=== PATIENT | female | born 1985 | race Two or more races ===

== ENCOUNTER 2017-04-04 22:05 | Emergency (ER) | payer MEDICAID ==
[~2017-04-04] VITALS: Ht 157.5 cm; Wt 68.0 kg
[2017-04-04 22:08] VITALS: Ht 157.5 cm; Wt 68.0 kg
[2017-04-05] MEDS ORDERED: SOD CHLORIDE 0.9% 1,000 ML IV STA (00:06)
[2017-04-05] MEDS ORDERED: IBUPROFEN 600 MG TAB PO ONE (00:30)
[2017-04-05] MEDS ORDERED: ACETAMINOPHEN 325 MG TAB PO ONE (00:30)
[2017-04-05 00:36] LABS: ADD SCAN DIFF NO
[2017-04-05 00:38] LABS: BASOPHILS % 0.3 % (0.0-2.0); HEMATOCRIT 39.1 % (37.0-47.0); HEMOGLOBIN 13.6 g/dl (12.0-16.0); LYMPHOCYTES # 1.5 10^3/ul (0.8-2.9); LYMPHOCYTES % 11.9 % (15.0-51.0); MEAN CORPUSCULAR HEMOGLOBIN 31.6 pg (29.0-33.0); MEAN CORPUSCULAR HGB CONC 34.8 g/dl (32.0-37.0); MEAN CORPUSCULAR VOLUME 90.9 fl (82.0-101.0); MEAN PLATELET VOLUME 9.3 fl (7.4-10.4); MONOCYTE # 1.4 10^3/ul (0.3-0.9); MONOCYTES % 11.2 % (0.0-11.0); NEUTROPHIL # 9.3 10^3/ul (1.6-7.5); NEUTROPHILS % 76.3 % (39.0-77.0); PLATELET COUNT 255 10^3/UL (140-415); RED CELL DISTRIBUTION WIDTH 12.9 % (11.5-14.5); WHITE BLOOD COUNT 12.2 10^3/ul (4.8-10.8)
[2017-04-05 00:50] LABS: ADD UMIC YES; UR ASCORBIC ACID NEGATIVE (NEGATIVE); UR BILIRUBIN (Dip) NEGATIVE (NEGATIVE); UR BLOOD (Dip) NEGATIVE (NEGATIVE); UR CLARITY CLEAR (CLEAR); UR COLOR YELLOW (YELLOW); UR GLUCOSE (Dip) NEGATIVE (NEGATIVE); UR KETONES (Dip) TRACE mg/dL (NEGATIVE); UR LEUKOCYTE ESTERASE (Dip) 1+ Leu/ul (NEGATIVE); UR NITRITE (Dip) NEGATIVE (NEGATIVE); UR RBC 2 /HPF (0-5); UR SPECIFIC GRAVITY (Dip) 1.006 (1.003-1.030); UR TOTAL PROTEIN (Dip) NEGATIVE (NEGATIVE); UR UROBILINOGEN (Dip) NEGATIVE (NEGATIVE)
[2017-04-05 01:18] LABS: ALBUMIN 4.1 g/dl (3.3-4.9); ALBUMIN/GLOBULIN RATIO 1.02; BILIRUBIN,INDIRECT 0.1 mg/dl (0-1.1); BILIRUBIN,TOTAL 0.1 mg/dl (0.2-1.3); CALCIUM 9.1 mg/dl (8.4-10.2); CREATININE 0.77 mg/dl (0.44-1.00); POTASSIUM 3.9 mmol/L (3.5-5.1); TOTAL PROTEIN 8.1 g/dl (6.1-8.1)
[2017-04-05] MEDS ORDERED: CEFTRIAXONE 1 GM/50 ML (PMX) 50 ML IVPB ONE (02:30)
[2017-04-05] MEDS ORDERED: IBUP-1542 PO (02:44)
[2017-04-05] MEDS ORDERED: CIPR500T4 PO (02:44)
[2017-04-05 02:53] VITALS: BP 109/62; PULSE 90; RESP 16; TEMP 98.2
--- NOTE | 2017-04-05 03:10 | ERD ---
ER Documentation Chief Complaint Date/Time DATE: 04/05/17 TIME: 02:50 Chief Complaint painful urination x 1 week, headache, fever HPI 32-year-old female patient with a past medical history of urinary tract infections presents to the ED complaining of fever, dysuria, burning with urination that started 1 week ago. Reports that she also has a headache. States that she is taking Tylenol at 2 PM today. Reports that her last menses was on March 26, 2017. States that she has 1 sexual partner. Denies any chest pain, shortness of breath, abdominal pain, nausea, vomiting, hematuria, urgency , frequency. ROS All systems reviewed and are negative except as per history of present illness. Medications Home Meds Active Scripts Ibuprofen* (Motrin*) 600 Mg Tab, 600 MG PO Q6, #30 TAB Prov:JEAN DOWNING PA-C 04/05/17 Ciprofloxacin Hcl* (Ciprofloxacin Hcl*) 500 Mg Tablet, 500 MG PO BID for 10 Days , TAB Prov:JEAN DOWNING PA-C 04/05/17 Allergies Allergies: Coded Allergies: No Known Allergy (Unverified , 04/04/17) PMhx/Soc Medical and Surgical Hx: pt denies Medical Hx, pt denies Surgical Hx History of Surgery: No Anesthesia Reaction: No Hx Neurological Disorder: No Hx Respiratory Disorders: No Hx Cardiac Disorders: No Hx Psychiatric Problems: No Hx Miscellaneous Medical Probl: No Hx Alcohol Use: No Hx Substance Use: No Hx Tobacco Use: No Smoking Status: Never smoker Physical Exam Vitals Vital Signs Date Time Temp Pulse Resp B/P Pulse Ox O2 Delivery O2 Flow Rate FiO2 04/05/17 02:53 98.2 90 16 109/62 98 Room Air 04/05/17 01:50 100.4 96 18 101/63 100 Room Air 04/04/17 22:08 103.6 122 20 121/88 100 Physical Exam Const: Lbe-[id number], well-nourished. In no acute distress. Head: Atraumatic, normocephalic Eyes: Normal Conjunctiva without injection. No purulent discharge. ENT: Normal external ear, nose. Moist oropharynx without tonsillar exudates. Non -erythematous pharynx. Uvula midline. No drooling. No trismus. Neck: No cervical midline tenderness. Full range of motion. No meningismus. No cervical lymphadenopathy. No JVD. Resp: Clear to auscultation bilaterally. No wheezing, rhonchi, rales, or crackles. No accessory muscle use. No retractions. Cardio: Regular rate and rhythm. No murmurs, rubs or gallops. Abd: Soft, nontender, non distended. Normal bowel sounds. No palpable masses. No rebound tenderness. No guarding. Negative McBurney's point. Negative psoas sign. Negative obturator sign. Skin: No petechiae or rashes Back: No midline tenderness. No CVA tenderness. Ext: No cyanosis, or edema. Neur: Awake and alert. Normal gait. Normal coordination. Psych: Normal Mood and Affect Result Diagram: 04/05/17 0025 04/05/17 0025 Results 24 hrs Laboratory Tests Test 04/05/17 00:25 White Blood Count 12.210^3/ul Red Blood Count 4.3010^6/ul Hemoglobin 13.6g/dl Hematocrit 39.1% Mean Corpuscular Volume 90.9fl Mean Corpuscular Hemoglobin 31.6pg Mean Corpuscular Hemoglobin Concent 34.8g/dl Red Cell Distribution Width 12.9% Platelet Count 96202^3/UL Mean Platelet Volume 9.3fl Neutrophils % 76.3% Lymphocytes % 11.9% Monocytes % 11.2% Eosinophils % 0.0% Basophils % 0.3% Nucleated Red Blood Cells % 0.0/100WBC Neutrophils # 9.310^3/ul Lymphocytes # 1.510^3/ul Monocytes # 1.410^3/ul Eosinophils # 0.010^3/ul Basophils # 0.010^3/ul Nucleated Red Blood Cells # 0.010^3/ul Urine Color YELLOW Urine Clarity CLEAR Urine pH 6.0 Urine Specific [place] 1.006 Urine Ketones TRACEmg/dL Urine Nitrite NEGATIVEmg/dL Urine Bilirubin NEGATIVEmg/dL Urine Urobilinogen NEGATIVEmg/dL Urine Leukocyte Esterase 1+Kelle/ul Urine Microscopic RBC 2/HPF Urine Microscopic WBC 11/HPF Urine Hemoglobin NEGATIVEmg/dL Urine Glucose NEGATIVEmg/dL Urine Total Protein NEGATIVEmg/dl Sodium Level 139mmol/L Potassium Level 3.9mmol/L Chloride Level 99mmol/L Carbon Dioxide Level 24mmol/L Anion Gap 20 Blood Urea Nitrogen 9mg/dl Creatinine 0.77mg/dl Glucose Level 127mg/dl Calcium Level 9.1mg/dl Total Bilirubin 0.1mg/dl Direct Bilirubin 0.00mg/dl Indirect Bilirubin 0.1mg/dl Aspartate Amino Transf (AST/SGOT) 27IU/L Alanine Aminotransferase (ALT/SGPT) 36IU/L Alkaline Phosphatase 68IU/L Total Protein 8.1g/dl Albumin 4.1g/dl Globulin 4.00g/dl Albumin/Globulin Ratio 1.02 Lipase 17U/L Current Medications Medications (Trade) Dose Ordered Sig/Sally Route PRN Reason Start Time Stop Time Status Last Admin Dose Admin Sodium Chloride (NS) 1,000 ml @ 1,000 mls/hr Q1H STAT IV 04/05/17 00:06 04/05/17 01:05 DC 04/05/17 00:23 Ibuprofen (Motrin) 600 mg ONCE ONCE PO 04/05/17 00:30 04/05/17 00:31 DC 04/05/17 00:22 Acetaminophen 650 mg 650 mg ONCE ONCE PO 04/05/17 00:30 04/05/17 00:31 DC 04/05/17 00:22 Ceftriaxone Sodium (Rocephin) 50 ml @ 100 mls/hr ONCE ONCE IVPB 04/05/17 02:30 04/05/17 02:55 DC 04/05/17 02:26 Procedures/MDM 32-year-old female patient with no significant past medical history presents the ED complaining of fever, dysuria that started 1 week ago. Patient has a fever of 103.6. Patient is tachycardic at 122. Patient was further worked up with CBC, CMP, lipase, UA, urine . Patient's pain and symptoms have improved after treatment with 1 L of normal saline and Tylenol. CBC: No leukocytosis. No e/o of systemic infection. No e/o anemia. CMP: No e/o severe acidosis, alkalosis, renal failure, diabetic ketoacidosis, liver disease Lipase within normal limits. Urine: No leukocyte esterase, no nitrites, no hematuria. Urine : negative Patient likely has pyelonephritis. He was treated in the ED with ceftriaxone and is appropriate for outpatient antibiotics. A differential diagnosis considered includes but is not limited to gastritis, GERD, peptic ulcer disease , cholecystitis, choledocholithiasis, cholangitis, pancreatitis, appendicitis, bowel obstruction, ileus, volvulus, nephrolithiasis, pyelonephritis, hepatitis, perforated viscus, diverticulitis, abdominal hernia, acute abdomen, mesenteric ischemia or other emergent conditions. Discharge medications: Ciprofloxacin, Ibuprofen Follow up with primary care physician in 1-2 days for referral to lace pinner. Instructed patient to return to the ED sooner for any worsening symptoms. Patient's questions were answered. Patient understood and agreed with discharge plan. Patient discharged stable. Departure Diagnosis: Primary Impression: Pyelonephritis Condition: Stable Patient Instructions: Pyelonephritis, Female (Adult) [facility] Usted se moran hecho un examen mdico de control que le indica que no est en hilaria condicin que requiera tratamiento urgente en el Departamento de Emergencia. Un estudio ms profundo y el tratamiento de gasca condicin pueden esperar sin ningn riesgo hasta que usted sea atendida/o en el consultorio de gasca mdico o hilaria cl abdi. Es responsabilidad suya arreglar hilaria katie para el seguimiento del jadyn. MANEJO DE CONDICIONES NO URGENTES EN EL FUTURO 1) Si usted tiene un mdico de atencin primaria: Usted debera llamar a gasca mdico de atencin primaria antes de venir al departamento de emergencia. Despus de las horas de consultorio, gasca doctor o gasca asociado/a est disponible por telfono. El mdico o enfermero de gabi en el servicio telefnico puede asesorarle por zach medio para atender el problema, o jadyn contrario se puede programar hilaria katie. 2) Si usted no tiene un mdico de atencin primaria: Llame al mdico o clnica de referencia que aparece abajo kelsey las horas de consultorio para hacer hilaria katie para que le vean. CLINICAS: [facility] [phone] [address] [facility] 951 [phone] [address] [facility] [phone] [facility] 681 [phone] [place] [address] [phone] [facility]. [phone] [address] [facility]. [facility] () Usted se moran hecho un examen mdico de control que le indica que no est en hilaria condicin que requiera tratamiento urgente en el Departamento de Emergencia. Un estudio ms profundo y el tratamiento de gasca condicin pueden esperar sin ningn riesgo hasta que usted sea atendida/o en el consultorio de gasca mdico o hilaria cl abdi. Es responsabilidad suya arreglar hilaria katie para el seguimiento del jadyn. MANEJO DE CONDICIONES NO URGENTES EN EL FUTURO 1) Si usted tiene un mdico de atencin primaria: Usted debera llamar a gasca mdico de atencin primaria antes de venir al departamento de emergencia. Despus de las horas de consultorio, gasca doctor o gasca asociado/a est disponible por telfono. El mdico o enfermero de gabi en el servicio telefnico puede asesorarle por zach medio para atender el problema, o jadyn contrario se puede programar hilaria katie. 2) Si usted no tiene un mdico de atencin primaria: Llame al mdico o condado institucions de referencia que aparece abajo kelsey las horas de consultorio para hacer hilaria katie para que le vean. SI USTED NO PUEDE PAGAR PARA SAPPHIRE UN MEDICO puede ir a: [facility] [address] [place] [address] [facility] [address] [place] [address] [facility] [address] [place] [address] [facility] [address] [place] [address] [facility] Additional Instructions: Llame al doctor elliot hilaria KATIE PARA DENTRO DE 2 DIAZ.Dgale a la secretaria que nosotros le instruimos hacer esta katie.Avise o llame si gasca condicin se empeora antes de la katie. Regresa aqui si peor o no mejor. JEAN DOWNING PA-C Apr 05, 2017 03:08
== END 2017-04-05 02:55 | disposition home or self-care (01) ==
LOC: FTE 22:05
DX: N12 Tubulo-interstitial nephritis, not specified as acute or chronic (principal)
CPT/HCPCS: 36415; 80053; 81001; 83690; 85025; 87086; 96374; J0696; J7030; Z7502; Z7610